=== PATIENT | male | born 1955 | race Caucasian/White ===

== ENCOUNTER → 2018-03-15 | Outpatient (CLI) | payer OTHER ==
--- NOTE | 2018-03-15 19:01 | CONS ---
CONSULTATION DATE OF SERVICE: 03/15/2018 A 62-year-old gentleman has been evaluated in sleep center for obstructive sleep apnea- hypopnea syndrome. HISTORY OF PRESENT ILLNESS AND SLEEP-WAKE EVALUATION: Patient had been diagnosed with obstructive sleep apnea about 10 years ago. He is still on treatment with CPAP every night for the whole night. According to him, he practically does not snore with the machine, but still has awakenings from sleep up to 5 times. His sleep schedule from 10:30 p.m. to 6:45 a.m. on working days and until 7:30 a.m. on the weekend. No problem with falling asleep, although he has TV set in bedroom. He again wakes up from sleep up to 5 times without nocturia. During the day, he may feel sleepiness. [place] Sleepiness Scale increased to 12. PAST MEDICAL HISTORY: Positive for coronary artery disease, possibly heart attacks, gout, hypothyroidism, hyperlipidemia, thyroid tumor. PAST SURGICAL HISTORY: Bilateral knee replacement 2015, 2017, thyroidectomy for possible cancer. Pathology showed benign tumor. MEDICATIONS: 1. Clopidogrel. 2. Metoprolol. 3. Naproxen. 4. Allopurinol. 5. Levothyroxine. 6. Valsartan. 7. Aspirin. 8. Atorvastatin. 9. Fluticasone. 10.Fish oil. 11.Folic acid. SOCIAL HISTORY: Negative for smoking. Alcohol consumption rarely. FAMILY HISTORY: Hypertension, heart problems, hyperlipidemia, arthritis, sinus headaches, sleep apnea, snoring, acid reflux, ulcers, restless legs. REVIEW OF SYSTEMS: Awakenings from sleep, sleepiness during the day. PHYSICAL EXAMINATION: GENERAL Patient in no distress. VITAL SIGNS BP 121/70, HR 65, RR 16, height 6 feet 1 inch, weight 299.0, BMI 39.4, temperature 98.0, oxygen saturation room air 95%. HEENT PERRLA, EOMI, evaluation of oropharynx showed tongue protrudes midline, low position of soft palate. Neck Supple, no JVD. Thyroid is not palpable. LUNGS Clear to percussion and to auscultation. Good air exchange. No wheezing or rhonchi. HEART S1, S2 regular. No murmurs, gallops, or rubs. ABDOMEN Obese, soft and nontender. Bowel sounds are present. No organomegaly appreciated. EXTREMITIES No clubbing or cyanosis. No edema. MILITARY PROFESSIONAL Awake, alert, and oriented X3. Cranial nerves 2 to 7 intact. There is no fasciculation or atrophy. noted. No focal deficits observed. I checked the patient's CPAP unit. CPAP pressure is 11 cm of water. Usage is 100% of the time more than 4 hours every 7.7 hours. Leak only 10 L/minute, which is normal range. Apnea-hypopnea index was 1.1, which is perfect. IMPRESSION: 1. Obstructive sleep apnea-hypopnea syndrome for 10 years. Patient demonstrated great compliance with treatment, benefitting from treatment. Presently on treatment with CPAP at 11 cm of water. The patient does have some awakenings from sleep and sleepiness during the day. 2. Obesity, BMI 39.4. Patient increased his weight by about 30 pounds since previous titration. 3. Coronary artery disease, status post stent insertion. 4. Hypertension. 5. Gout. 6. Hypothyroidism. 7. Status post thyroidectomy for tumor. Pathology showed benign tumor. 8. Hyperlipidemia. 9. Status post bilateral knee total replacement 2015 and 2017. PLAN: 1. I will adjust pressure in his CPAP unit automatic regimen to the range of pressure up to 15 cm of water. 2. I will see patient for followup visit in several months to re-evaluate his clinical condition at that time and his response in changes of pressure in his CPAP unit. 3. Losing weight. 4. Sleep hygiene with regular time in bed for at least 8 hours. 5. No driving if feeling any sleepiness. 6. Prescription for all necessary CPAP supplies, including mask, tube, filters. Thank you very much for allowing me to participate in management of your patient. Sincerely, Morris Davis MD, PhD, FAASM Diplomat of [employer] Specialties [employer] Board of Internal Medicine Senior Enterprise Architect of [facility] [place] MMODL / IJN: [id number] /
== END | disposition home or self-care (01) ==
LOC: SLEEP 14:27
PROVIDERS: ATTEND Internal Medicine
DX: G47.33 Obstructive sleep apnea (adult) (pediatric) (principal); I25.10 Atherosclerotic heart disease of native coronary artery without angina pectoris; I10 Essential (primary) hypertension; M10.9 Gout, unspecified; E78.5 Hyperlipidemia, unspecified; E89.0 Postprocedural hypothyroidism; E66.9 Obesity, unspecified; Z68.39 Body mass index [BMI] 39.0-39.9, adult; Z79.01 Long term (current) use of anticoagulants; Z79.1 Long term (current) use of non-steroidal anti-inflammatories (NSAID); Z79.899 Other long term (current) drug therapy; Z79.51 Long term (current) use of inhaled steroids; Z96.653 Presence of artificial knee joint, bilateral; Z95.5 Presence of coronary angioplasty implant and graft
CPT/HCPCS: 99211

== ENCOUNTER → 2018-06-07 | Outpatient (CLI) | payer OTHER ==
--- NOTE | 2018-06-07 11:23 | SFUN ---
SLEEP CENTER FOLLOW UP NOTE DATE OF SERVICE: 06/07/2018 A 63-year-old gentleman who has been followed in the Sleep Center for treatment of obstructive sleep apnea-hypopnea syndrome. Patient continued to use his CPAP equipment every night, sometimes opens his mouth with coughing and exhalation during the sleep. He using nasal pillow mask. Had several nights when he did not sleep well, but otherwise he sleeps well with the machine. [place] Sleepiness Scale today is 7, which is normal range. I checked his CPAP unit. It is an automatic regimen 9-15 cm of water as I adjusted this last time. Most of the time pressure is 12.5 cm of water, which is higher than the pressure during the previous visit. Leak is 13 L/minute which is normal range. Apnea- hypopnea index is only 1.6, which is perfect. Usage of the machine is 100% of the time, 30/30 nights for more than 4 hours every 7.9 hours MEDICATIONS: Clopidogrel, metoprolol, naproxen, allopurinol, levothyroxine, valsartan, aspirin atorvastatin, fluticasone, folic acid, fish oil. PHYSICAL EXAM: Patient in no distress, BP 140/76, HR 55, RR 16, height 6 and 1, weight 290.6, body mass index 38.1, temperature 98.2, oxygen saturation at room air 95%. OROPHARYNX: Low position of soft palate. ABDOMEN: Slightly obese. Neck Supple, no JVD. Thyroid is not palpable. LUNGS Clear to percussion and to auscultation. Good air exchange. No wheezing or rhonchi. HEART S1, S2 regular. No murmurs, gallops, or rubs. EXTREMITIES No clubbing or cyanosis. BROOM BUILDER Awake, alert, and oriented X3. Cranial nerves 2 to 7 intact. There is no fasciculation or atrophy. noted. No focal deficits observed. IMPRESSION: 1. Obstructive sleep apnea-hypopnea syndrome. Patient demonstrated 100% compliance with treatment benefitting from treatment. 2. Obesity. 3. Coronary artery disease, status post stent insertion. 4. Hypertension. 5. Gout. 6. Hypothyroidism. 7. Status post thyroidectomy for benign tumor. 8. Hyperlipidemia. 9. Status post bilateral total knee replacement in 2016 and 2017. PLAN: 1. Prescription for chin strap. 2. Patient will continue to use CPAP equipment every night. 3. We talked about exercise for muscles of the lips. 4. We will maintain prescription for all necessary CPAP supplies including mask, tube, filters. 5. Watching and losing weight. 6. Sleep hygiene with regular time in bed for least 8 hours. 7. No driving if feeling sleepiness. 8. Followup visit in 1 year or earlier if patient has any problems. Thank you very much for allowing me to participate in the management of your patient. Sincerely, Morris Davis MD, PhD, FAASM Diplomat of [place] Board [employer] Specialties [place] Board of Internal Medicine Eyeglass Lens Grinder of [facility] [place] MMODL / IJN: [id number] /
== END ==
LOC: SLEEP 10:11
PROVIDERS: ATTEND Internal Medicine
DX: G47.33 Obstructive sleep apnea (adult) (pediatric) (principal); E66.9 Obesity, unspecified; I25.10 Atherosclerotic heart disease of native coronary artery without angina pectoris; I10 Essential (primary) hypertension; M10.9 Gout, unspecified; E03.9 Hypothyroidism, unspecified; E78.5 Hyperlipidemia, unspecified; Z96.653 Presence of artificial knee joint, bilateral; Z95.5 Presence of coronary angioplasty implant and graft; Z90.89 Acquired absence of other organs; Z86.018 Personal history of other benign neoplasm; Z99.89 Dependence on other enabling machines and devices

== ENCOUNTER → 2018-07-26 | Outpatient (CLI) | payer OTHER ==
[2018-07-26 19:55] LABS: T4, Free (Free Thyroxine) 1.2 ng/dL (0.80-1.80)
== END | disposition home or self-care (01) ==
LOC: LABWHC1 12:00
PROVIDERS: ATTEND Nurse Practitioner Adult Health
DX: E03.9 Hypothyroidism, unspecified (principal)
CPT/HCPCS: 36415; 84439; 84443

== ENCOUNTER → 2019-09-18 | Outpatient (CLI) | payer MEDICARE, BC ==
[2019-09-18 16:15] LABS: African American GFR (CKD) 81.2 (60.0-200.0); Anion Gap 7.3 mmol/L (4.00-12.00); BUN/Creat Ratio 16.36 Ratio (12.00-20.00); Calcium 9.3 mg/dL (8.7-10.3); Carbon Dioxide 26.7 mmol/L (21.6-31.8); Magnesium 1.8 mg/dL (1.5-2.4); Non-African American GFR(CKD) 70.1 (60.0-200.0); Potassium 4.3 mmol/L (3.5-5.5)
== END | disposition home or self-care (01) ==
LOC: LABWHC1 11:32
PROVIDERS: ATTEND Nurse Practitioner
DX: I10 Essential (primary) hypertension (principal); E55.9 Vitamin D deficiency, unspecified
CPT/HCPCS: 36415; 80048; 82306; 83735

== ENCOUNTER → 2020-07-09 | Outpatient (CLI) | payer MEDICARE, BC ==
--- NOTE | 2020-07-09 19:10 | SFUN ---
SLEEP CENTER FOLLOW UP NOTE DATE OF SERVICE: 07/09/2020 This is a 65-year-old gentleman who has been followed in the sleep Center for treatment of obstructive sleep apnea-hypopnea syndrome. Patient continues to use his CPAP equipment every night for the whole night. Sometimes his machine is noisy during the night and it might wake him up from sleep. [place] Sleepiness Scale today is 10. I checked his CPAP unit. It is an automatic regimen range of the pressure 9-15, average pressure 14.8 cm of water, usage 29/30 nights for more than 4 hours. Leak is 6 L/minutes which is normal. Apnea-hypopnea index 1.4, which is great. MEDICATIONS: Clopidogrel 75 mg once a day, metoprolol 25 mg twice a day, naproxen 220 mg once a day, Allopurinol 300 mg once a day, losartan 50 mg once a day, atorvastatin 40 mg once a day, Advair 250/50, Prevacid 30 mg on p.r.n. basis, alprazolam 0.25 mg as needed. PLAN: 1. Prescription to replace or fix CPAP unit. Patient will continue to use PAP equipment every night for the whole night. 2. Sleep hygiene with regular time in bed for at least 7-1/2 to 8 hours. 3. Precautions related to driving. No driving if feeling sleepiness. 4. I will maintain all necessary prescription for PAP supplies including mask, tube, filters. 5. Watching weight. 6. No driving if feeling sleepiness. 7. Follow-up visit in 6 months or earlier if patient has any problems. Thank you very much for allowing me to participate in management of your patient. Sincerely, Morris Davis MD, PhD, FAASM Diplomat of [place] Board [employer] Specialties [employer] Board of Internal Medicine Chemical Plant Technical Director of [facility] [place] MMODL / IJN: [id number] /
== END | disposition home or self-care (01) ==
LOC: SLEEP 11:33
PROVIDERS: ATTEND Internal Medicine
DX: G47.33 Obstructive sleep apnea (adult) (pediatric) (principal); Z99.89 Dependence on other enabling machines and devices; Z79.891 Long term (current) use of opiate analgesic; Z79.899 Other long term (current) drug therapy

== ENCOUNTER → 2020-09-23 | Outpatient (CLI) | payer MEDICARE, BC ==
--- NOTE | 2020-09-23 16:21 | SFUN ---
SLEEP CENTER FOLLOW UP NOTE DATE OF SERVICE: 09/23/2020 This 65-year-old gentleman who has been followed in Sleep Center for treatment of obstructive sleep apnea-hypopnea syndrome. During the previous visit in June, it was necessary to replace patient's CPAP unit and today is his first visit after he received his new CPAP equipment. He is able to use it every night for the whole night. No problem with mask fitting, pressure or humidification. He likes his CPAP machine. New unit is better than the previous one. [place] Sleepiness Scale today is 8, which is in normal range. I checked his CPAP machine. It is in the range of pressure 9-15, average pressure 14.5, usage 30 out of 30 nights for more than 4 hours with average usage 7.7 hours per night. Leak is 14 L/minute which is acceptable. Apnea-hypopnea index is only 1.6, which is totally normal. MEDICATIONS: Clopidogrel 75 mg once a day, metoprolol 25 mg twice a day, naproxen 220 mg once a day, Allopurinol 300 mg once a day, losartan 50 mg once a day, atorvastatin 40 mg once a day, Advair 250/50. Prevacid 30 mg on p.r.n. basis. alprazolam 0.25 mg as needed. PHYSICAL EXAMINATION: GENERAL: Patient in no distress. VITAL SIGNS: BP 157/81, HR 61, RR 15, weight 311.4, temperature 98.7. HEENT: PERRLA, EOMI. Oropharynx low position of soft palate. NECK: Supple, no JVD. Thyroid is not palpable. LUNGS: Clear to percussion and to auscultation. Good air exchange. No wheezing or rhonchi. HEART: S1, S2 regular. No murmurs, gallops, or rubs. ABDOMEN: Slightly obese. EXTREMITIES: No clubbing or cyanosis. INTERMISSION COORDINATOR: Awake, alert, and oriented X3. Cranial nerves 2 to 7 intact. There is no fasciculation or atrophy. noted. No focal deficits observed. IMPRESSION: 1. Obstructive sleep apnea-hypopnea syndrome. Patient demonstrated 100% compliance with treatment, benefitting from treatment. 2. Coronary artery disease, status post stent insertion. 3. Obesity. 4. Hypertension. 5. Gout. 6. Hypothyroidism. 7. Status post thyroidectomy for benign tumor. 8. Hyperlipidemia. 9. Status post bilateral total knee replacement in 2016 and 2017. PLAN: 1. Patient will continue to use PAP equipment every night for the whole night. 2. Sleep hygiene with regular time in bed for at least 7-1/2 to 8 hours. 3. Precautions related to driving. No driving if feeling sleepiness. 4. I will maintain all necessary prescription for PAP supplies including mask, tube, filters. 5. Watching weight. 6. No driving if feeling sleepiness. 7. Follow-up visit in 6 months or earlier if patient has any problems. Thank you very much for allowing me to participate in management of your patient. Sincerely, Morris Davis MD, PhD, FAASM Diplomat of [place] Board of Medical Specialties [employer] [place] Board of Internal Medicine Lithograph Designer of [facility] [place] MMODL / IJN: [id number] /
== END | disposition home or self-care (01) ==
LOC: SLEEP 10:39
PROVIDERS: ATTEND Internal Medicine
DX: G47.33 Obstructive sleep apnea (adult) (pediatric) (principal); I25.10 Atherosclerotic heart disease of native coronary artery without angina pectoris; E66.9 Obesity, unspecified; I10 Essential (primary) hypertension; M10.9 Gout, unspecified; E78.5 Hyperlipidemia, unspecified; E03.9 Hypothyroidism, unspecified; Z99.89 Dependence on other enabling machines and devices; Z79.899 Other long term (current) drug therapy; Z79.891 Long term (current) use of opiate analgesic; Z96.653 Presence of artificial knee joint, bilateral

== ENCOUNTER → 2021-04-29 | Outpatient (CLI) | payer MEDICARE, BC ==
--- NOTE | 2021-04-29 13:22 | SFUN ---
SLEEP CENTER FOLLOW UP NOTE DATE OF SERVICE: 04/29/2021 65-year-old gentleman has been followed in Sleep Center for treatment of obstructive sleep apnea-hypopnea syndrome. The patient successfully continues to use his CPAP equipment every night for the whole night getting his CPAP supplies in time. No complaints on machine. [place] Sleepiness Scale today is 9 which is in normal range. I checked his CPAP unit. Range of the pressure 9-15 with average pressure 14.7, usage is 24/30 nights for more than 4 hours and average usage 7.3 hours per night. The patient indicated that other 6 nights he used his spare unit [place]. Leak is 12 L/minute which is acceptable. Apnea-hypopnea index is 1.4 which is perfect. MEDICATIONS: Clopidogrel 75 mg once a day, metoprolol 25 mg twice a day, naproxen 220 mg once a day, allopurinol 300 mg once a day, losartan 50 mg once a day, levothyroxine 175 mcg once a day, aspirin 81 mg once a day. Prevacid 30 mg as needed, alprazolam 0.25 mg as needed. PHYSICAL EXAMINATION: GENERAL: Patient in no distress. BP 140/76, HR 57, RR 12, height 6 foot 2 inches, weight 316.4 pounds. Patient increased his weight in 5 pounds compared to the previous visit. Temperature 97.7, oxygen saturation at room air 96%. Oropharynx low position of soft palate. NECK: Supple, no JVD. Thyroid is not palpable. LUNGS: Clear to percussion and to auscultation. Good air exchange. No wheezing or rhonchi. HEART: S1, S2 regular. No murmurs, gallops, or rubs. ABDOMEN: Obese. Soft and nontender. Bowel sounds are present. No organomegaly appreciated. EXTREMITIES: No clubbing or cyanosis. RECOATING MACHINE OPERATOR: Awake, alert, and oriented X3. Cranial nerves 2 to 7 intact. There is no fasciculation or atrophy. noted. No focal deficits observed. IMPRESSION: 1. Obstructive sleep apnea-hypopnea syndrome. The patient demonstrated good compliance with treatment. Normal respiration on CPAP. 2. Coronary artery disease, status post stent insertion. 3. Hypertension. 4. Obesity, patient increased his weight on 5 pounds, body mass index 40.5. 5. Gout. 6. Hypothyroidism. 7. Status post thyroidectomy for benign tumor. 8. Hyperlipidemia. 9. Status post bilateral total knee replacement in 2016 and 2017. PLAN: 1. Replace air filter immediately in bad condition. 2. Patient will continue to use PAP equipment every night for the whole night. 3. Sleep hygiene with regular time in bed for at least 7-1/2 to 8 hours. 4. Precautions related to driving. No driving if feeling sleepiness. 5. I will maintain all necessary prescription for PAP supplies including mask, tube, filters. 6. Watching weight. 7. Follow-up visit in 6 months or earlier if patient has any problems. Time spent with the patient and documentation 30 minutes. Thank you very much for allowing me to participate in management of your patient. Sincerely, Morris Davis MD, PhD, FAASM Diplomat of [place] Board of Medical Specialties Sleep Medicine Board of [place] Board of Internal Medicine Guitar Maker Hand of [facility] [place] MMWAYNEL / SCOTT: [id number] /
== END | disposition home or self-care (01) ==
LOC: SLEEP 10:39
PROVIDERS: ATTEND Internal Medicine
DX: G47.33 Obstructive sleep apnea (adult) (pediatric) (principal); I25.10 Atherosclerotic heart disease of native coronary artery without angina pectoris; I10 Essential (primary) hypertension; E66.9 Obesity, unspecified; M10.9 Gout, unspecified; E03.9 Hypothyroidism, unspecified; Z95.5 Presence of coronary angioplasty implant and graft; Z68.41 Body mass index [BMI] 40.0-44.9, adult

== ENCOUNTER → 2022-04-06 | Outpatient (CLI) | payer MEDICARE, BC ==
[2022-04-06 14:59] LABS: T4, Free (Free Thyroxine) 1.13 ng/dL (0.800-1.800)
== END | disposition home or self-care (01) ==
LOC: LABWHC1 09:23
PROVIDERS: ATTEND Internal Medicine Interventional Cardiology
DX: R53.83 Other fatigue (principal)
CPT/HCPCS: 36415; 84439; 84443

== ENCOUNTER 2023-11-09 08:16 | Day surgery (SDC) | payer MEDICARE, BC ==
[~2023-11-09 08:16] MED LIST: LIDOCAINE 1% (10MG/ML) FOR IV START INTRADERMA PRN
[2023-11-09] MEDS: LACTATED RINGERS 1,000 ML IV SCH (08:55)
[2023-11-09] MEDS ORDERED: PROPOFOL 10 MG/ML 20 ML VIAL IV ONE (09:18)
--- NOTE | 2023-11-09 09:21 | P.GSHP ---
History of Present Illness H&P Date: 11/09/23 Chief Complaint: Screening colonoscopy This a 68-year-old male presents today for screening colonoscopy. Patient denies a any significant GI complaints. Past Medical History Past Medical History: Hyperlipidemia, Hypertension, Osteoarthritis (OA), Sleep Apnea/CPAP/BIPAP, Thyroid Disorder Additional Past Medical History / Comment(s): hx migraines, ulcer, gout, hypothyroidism, rectal abcess(mrsa)near rectum 7-10 days after colonoscopy in 2007, uses CPAP, has never had [place] Last Myocardial Infarction Date:: 1996 History of Any Multi-Drug Resistant Organisms: MRSA Date of last positivie culture/infection: 2007 MDRO Source:: ABSCESS NEAR RECTUM Past Surgical History: Heart Catheterization With Stent, Orthopedic Surgery Additional Past Surgical History / Comment(s): 2 stents, naida KNEE ARTHOPLASTY, LT KNEE arthroscopy, LT ELBOW SX, THYROIDECTOMY Past Anesthesia/Blood Transfusion Reactions: Motion Sickness, Postoperative Nausea & Vomiting (PONV) Date of Last Stent Placement:: 2015 Smoking Status: Never smoker - Past Family History Mother Family Medical History: No Reported History Medications and Allergies Home Medications Medication Instructions Recorded Confirmed Type Aspirin 81 mg PO DAILY 02/10/15 11/07/23 History Folic Acid 1 mg PO DAILY 02/10/15 11/07/23 History Levothyroxine Sodium [Synthroid] 175 mcg PO QAM 02/10/15 11/07/23 History allopurinoL [Zyloprim] 300 mg PO QAM 02/10/15 11/07/23 History Krill Oil 1 tab PO DAILY 01/06/16 11/07/23 History Losartan [Cozaar] 50 mg PO HS 01/06/16 11/07/23 History Naproxen 500 mg PO QAM 08/05/16 11/07/23 History [place]-3 Fatty Acids/Fish Oil [Fish 1 each PO QAM 08/05/16 11/07/23 History Oil 1,000 mg Softgel] Bisoprolol-Hctz 5-6.25 mg [Ziac 1 tab PO QAM 11/07/23 11/07/23 History 5-6.25 MG] Escitalopram [Lexapro] 10 mg PO QAM 11/07/23 11/07/23 History Allergies Allergy/AdvReac Type Severity Reaction Status Date / Time No Known Allergies Allergy Verified 11/09/23 08:45 Surgical - Exam Vital Signs Temp Pulse Resp BP Pulse Ox 98.4 F 74 16 142/81 96 11/09/23 08:55 11/09/23 08:55 11/09/23 08:55 11/09/23 08:55 11/09/23 08:55 - General well developed, well nourished, no distress - Eyes PERRL - ENT normal pinna - Neck no masses - Respiratory normal expansion - Cardiovascular Rhythm: regular - Abdomen Abdomen: soft, non tender Assessment and Plan Assessment: We'll perform screening colonoscopy
[2023-11-09 09:26] VITALS: RESP 16; TEMP 98.4
--- NOTE | 2023-11-09 09:37 | P.OP ---
Date of Procedure: 11/09/23 Preoperative Diagnosis: Screening colonoscopy Postoperative Diagnosis: Normal colon Procedure(s) Performed: Colonoscopy Anesthesia: MAC Surgeon: Tre Lion Pathology: none sent Condition: stable Disposition: PACU Description of Procedure: PROCEDURE: The patient was placed on the endoscopy table in the lateral position. Digital rectal examination was performed which revealed no abnormalities. The prostate was symmetrical without nodules. Flexible colonoscope was then placed in the patient's anus and passed throughout the entire colon. The ileocecal valve was visualized. The cecum, ascending, transverse, descending and sigmoid colon were normal. The rectum was normal as well. There were no masses, polyps or diverticula noted in the entire colon. SUMMARY OF FINDINGS: Normal colonoscopy.
[2023-11-09 10:00] VITALS: BP 105/66; PULSE 60
== END 2023-11-09 10:08 | disposition home or self-care (01) ==
LOC: ORWHC2ENDO 08:16
PROVIDERS: ATTEND Surgery
DX: Z12.11 Encounter for screening for malignant neoplasm of colon (principal); E78.5 Hyperlipidemia, unspecified; I10 Essential (primary) hypertension; M19.90 Unspecified osteoarthritis, unspecified site; G47.33 Obstructive sleep apnea (adult) (pediatric); E03.9 Hypothyroidism, unspecified; I25.2 Old myocardial infarction; I25.10 Atherosclerotic heart disease of native coronary artery without angina pectoris; G43.909 Migraine, unspecified, not intractable, without status migrainosus; F41.9 Anxiety disorder, unspecified; Z95.5 Presence of coronary angioplasty implant and graft; Z98.890 Other specified postprocedural states; Z79.82 Long term (current) use of aspirin; Z79.890 Hormone replacement therapy; Z79.899 Other long term (current) drug therapy; Z96.653 Presence of artificial knee joint, bilateral; Z90.89 Acquired absence of other organs
CPT/HCPCS: J2704; G0121

== ENCOUNTER → 2024-03-28 | Outpatient (CLI) | payer MEDICARE, BC ==
[2024-03-28 12:06] VITALS: BP 113/69; PULSE 66; RESP 20; TEMP 98.2
--- NOTE | 2024-03-28 12:36 | P.PROGSL ---
Subjective DATE: 03/28/2024 FOLLOW UP VISIT. Patient with obstructive sleep apnea hypopnea syndrome return to sleep center for follow-up visit. Information from previous visit have been reviewed. Patient is using PAP equipment every night for the whole night, getting PAP supplies in time. The patient does not have significant problems with the mask, PAP unit and humidification. [place] sleepiness scale is slightly increased to 10. I checked information from PAP unit. Motor life expectancy was exceeded. Unit is noisy during usage at night. PAP unit pressure 9-11.6, average 11.5 cm H2O. Usage is 100% for more then 4 hours, average 7.9 hours per night. Leak is 8 l/m, which is in acceptable range. Apnea Hypopnea Index is 2.2, which is normal. MEDICATIONS have been reviewed, please see below. During physical exam: GENERAL: A pleasant patient without any distress. VITAL SIGNS: Please see below, weight is 283.2 lbs. HEENT: PERRLA, EOMI.low position of soft palate, [place] 3. NECK: Supple. No JVD. LUNGS: Clear to percussion and to auscultation. Good air exchange. No wheezing or rhonchi. HEART: S1, S2 regular. ABDOMEN: Soft and nontender. Slightly obese EXTREMITIES: No clubbing or cyanosis. WAX CUTTER: Awake, alert, and oriented x3. No focal deficit. Impressions: 1. Obstructive sleep apnea-hypopnea syndrome. Patient demonstrated great compliance with treatment, benefiting from treatment. CPAP unit is noisy during the night, motor life expectancy was exceeded. 2. Obesity, BMI 37.3, patient lost 33 pounds comparing with previous visit. 3. Coronary artery disease, status post stent insertion. 4. Hypertension. 5. Gout. 6. Hypothyroidism. 7. Status post thyroidectomy for benign tumor. 8. Status post bilateral total knee replacement in 2016 and 2017. 9. Hyperlipidemia. Plan: 1. Continue using PAP equipment every night for the whole night. To replace CPAP unit to the new CPAP. This unit has motor life expectancy exceeded and noisy during the sleep. 2. Sleep hygiene with regular time in bed for at least 7.5-8 hours 3. PAP unit should stay lower then position of the head. 4. Advised patient to remove all remaining water from humidifier canister daily and make it dry after each usage. Refill canister with fresh distilled water before each usage. 5. Watching and continue losing weight. 6. Precautions related to driving. No driving if feel any sleepiness. 7. I will maintain prescription for PAP supplies including mask, tube, filters. 8. Follow up visit in 31-90 days after patient will receive new CPAP unit to evaluate clinical response on treatment, compliance with treatment and [place] adjustments. Thank you very much for allowing me to participate in the management of your patient. Morris Davis MD, PhD, FAASM. Diplomat of [place] Board of Sleep Medicine, Sleep Medicine Board by [place] Board of Internal Medicine Emissions Repair Technician of [facility] [place] cc: Bandar Purvis DO Objective - Vital Signs Vital Signs: Vital Signs Temp 98.2 F 03/28/24 12:05 Pulse 66 03/28/24 12:05 Resp 20 03/28/24 12:05 BP 113/69 03/28/24 12:05 Pulse Ox 96 03/28/24 12:05 FiO2 Intake & Output 03/27/24 03/28/24 03/28/24 18:59 06:59 18:59 Weight 128.367 kg Home Medications: Home Medications Medication Instructions Recorded Confirmed Type Aspirin 81 mg PO DAILY 02/10/15 03/28/24 History Folic Acid 1 mg PO DAILY 02/10/15 03/28/24 History Levothyroxine Sodium [Synthroid] 175 mcg PO QAM 02/10/15 03/28/24 History allopurinoL [Zyloprim] 300 mg PO QAM 02/10/15 03/28/24 History Krill Oil 1 tab PO DAILY 01/06/16 03/28/24 History Losartan [Cozaar] 50 mg PO HS 01/06/16 03/28/24 History [place]-3 Fatty Acids/Fish Oil [Fish 1 each PO QAM 08/05/16 03/28/24 History Oil 1,000 mg Softgel] Escitalopram [Lexapro] 10 mg PO QAM 11/07/23 03/28/24 History Atorvastatin [Lipitor] 40 mg PO DAILY 03/28/24 03/28/24 History Clopidogrel [Plavix] 03/28/24 History Metoprolol Succinate [Kapspargo 03/28/24 History Sprinkle] Semaglutide [Wegovy] 1.7 mg SQ 03/28/24 History
== END ==
LOC: 3 N SLEEP 11:19
PROVIDERS: ATTEND Internal Medicine
DX: G47.33 Obstructive sleep apnea (adult) (pediatric) (principal); E66.9 Obesity, unspecified; I25.10 Atherosclerotic heart disease of native coronary artery without angina pectoris; I10 Essential (primary) hypertension; M10.9 Gout, unspecified; E03.9 Hypothyroidism, unspecified; E78.5 Hyperlipidemia, unspecified; Z98.890 Other specified postprocedural states; Z96.653 Presence of artificial knee joint, bilateral; Z86.018 Personal history of other benign neoplasm; Z90.89 Acquired absence of other organs; Z99.89 Dependence on other enabling machines and devices; Z95.5 Presence of coronary angioplasty implant and graft; Z68.37 Body mass index [BMI] 37.0-37.9, adult; Z79.02 Long term (current) use of antithrombotics/antiplatelets; Z79.899 Other long term (current) drug therapy; Z79.890 Hormone replacement therapy
CPT/HCPCS: 99212